=== PATIENT | male | born 1965 ===

== ENCOUNTER 2023-10-15 09:35 | Outpatient (REF) | payer OTHER, SELFPAY ==
--- NOTE | ~2023-10-15 | XR_ITS ---
EXAMINATION: XR SHOULDER, RIGHT CLINICAL INFORMATION: Pain. COMPARISON: None available. TECHNIQUE: Three views of the right shoulder. FINDINGS: There is mild acromioclavicular osteoarthritis. Glenohumeral joint is well preserved. No fracture. Alignment is anatomic. Soft tissues are normal with no abnormal calcifications. XR/XR shoulder RT min 2V IMPRESSION: No acute fractures or malalignment. Mild acromioclavicular osteoarthritis.
== END 2023-10-15 09:36 | disposition home or self-care (01) ==
LOC: HO.HOSX 09:35
PROVIDERS: PCP Internal Medicine; Visit Provider Orthopaedic Surgery
DX: M24.811 Other specific joint derangements of right shoulder, not elsewhere classified (principal)
CPT/HCPCS: 73030; 99202

== ENCOUNTER 2023-10-15 09:35 | Outpatient (AMB) | payer OTHER, SELFPAY ==
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
[2023-10-15 10:26] VITALS: BMI 47.2
== END 2023-10-15 10:57 | disposition home or self-care (01) ==
LOC: HO.HOS 09:35
PROVIDERS: PCP Internal Medicine; Visit Provider Orthopaedic Surgery
DX: M24.811 Other specific joint derangements of right shoulder, not elsewhere classified (principal); V49.40XA Driver injured in collision with unspecified motor vehicles in traffic accident, initial encounter; Z04.3 Encounter for examination and observation following other accident
CPT/HCPCS: 99203

== ENCOUNTER 2023-11-30 17:39 | Outpatient (REF) | payer OTHER, SELFPAY ==
--- NOTE | ~2023-11-30 | MR_ITS ---
EXAMINATION: MRI RIGHT SHOULDER WITHOUT CONTRAST CLINICAL INFORMATION: M24.811 - Other specific joint derangements of right shoulder, not elsew... COMPARISON: Radiographs 10/15/2023 TECHNIQUE: MRI of the shoulder without contrast is performed on a 1.5 Miriam high-field scanner. FINDINGS: ROTATOR CUFF: Severe supraspinatus tendinosis with undersurface partial tearing, with full-thickness component at the anterior leading edge. Severe tendinosis involves the anterior aspect of the distal infraspinatus tendon. Ill-defined high-grade undersurface partial tearing of the distal subscapularis tendon. Mild supraspinatus and infraspinatus muscle atrophy and mild atrophy involving the superior portion of the subscapularis muscle. BICEPS: The biceps tendon is completely torn and retracted. CORACOACROMIAL ARCH: The undersurface of the acromion is curved with no subacromial spur. Moderate acromioclavicular osteoarthritis. LABRUM/CAPSULE: Superficial tearing and blunting of the superior labrum. GLENOHUMERAL JOINT/MARROW: Chondral delamination along the inferior glenoid rim. Degenerative spurring and cysts of the greater tuberosity anteriorly. Small joint effusion with prominent fluid extending into the subacromial subdeltoid and subcoracoid bursa. ADDITIONAL FINDINGS: None. MR/MR shoulder RT wo con IMPRESSION: 1. Severe supraspinatus tendinosis with undersurface partial tearing and full-thickness component at the anterior leading edge. Severe infraspinatus tendinosis. 2. Ill-defined undersurface partial tearing of the distal subscapularis tendon. 3. Completely torn and retracted biceps tendon. 4. Moderate acromioclavicular and mild glenohumeral osteoarthritis. Electronically signed by: Diego Mattson MD 12/01/2023 12:00 PM EDT
== END 2023-11-30 17:40 | disposition home or self-care (01) ==
LOC: HO.MRI 17:39
PROVIDERS: PCP Internal Medicine; Visit Provider Orthopaedic Surgery
DX: M24.811 Other specific joint derangements of right shoulder, not elsewhere classified (principal)
CPT/HCPCS: 73221

== ENCOUNTER 2023-12-13 08:35 | Outpatient (AMB) | payer OTHER, SELFPAY ==
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
[2023-12-13 08:59] VITALS: BMI 41.1
== END 2023-12-13 09:13 | disposition home or self-care (01) ==
PROVIDERS: PCP Internal Medicine; Visit Provider Orthopaedic Surgery
DX: M75.101 Unspecified rotator cuff tear or rupture of right shoulder, not specified as traumatic (principal)
CPT/HCPCS: 99214

== ENCOUNTER → 2023-12-13 08:35 | Outpatient (BNVA) | payer OTHER, SELFPAY | PROVIDERS: PCP Internal Medicine; Visit Provider Orthopaedic Surgery ==